=== PATIENT | male | born 1955 | race Hispanic/Latino ===

== ENCOUNTER → 2018-05-14 | Outpatient (CLI) | payer OTHER ==
[~2018-05-14] MED LIST: AMLO10TA7 PO; ELVI1TAB3 PO; FOLI-74 PO; LISI-613 PO; TAMS-1 PO
== END | disposition home or self-care (01) ==
LOC: RAH 09:00
PROVIDERS: ATTEND Obstetrics & Gynecology
DX: K76.0 Fatty (change of) liver, not elsewhere classified (principal)
CPT/HCPCS: 76700

== ENCOUNTER → 2020-04-08 | Outpatient (CLI) | payer OTHER ==
[~2020-04-08] MED LIST changes: +AMLO-258 PO; -AMLO10TA7 PO; -LISI-613 PO; +LISI20TA24 PO
== END | disposition home or self-care (01) ==
LOC: RAH 08:02
PROVIDERS: ATTEND Internal Medicine Gastroenterology
DX: R94.5 Abnormal results of liver function studies (principal); K76.0 Fatty (change of) liver, not elsewhere classified; R79.89 Other specified abnormal findings of blood chemistry; K76.9 Liver disease, unspecified
CPT/HCPCS: 76700

== ENCOUNTER → 2020-05-13 | Outpatient (CLI) | payer OTHER ==
[~2020-05-13] MED LIST changes: +IOHEXOL-350 75 ML VIAL IV ONE
== END | disposition home or self-care (01) ==
LOC: RAH 08:11
PROVIDERS: ATTEND Internal Medicine Gastroenterology
DX: D18.03 Hemangioma of intra-abdominal structures (principal); K76.0 Fatty (change of) liver, not elsewhere classified; R93.2 Abnormal findings on diagnostic imaging of liver and biliary tract; K76.9 Liver disease, unspecified; K20.90 Esophagitis, unspecified without bleeding
CPT/HCPCS: 74170; Q9967

== ENCOUNTER → 2022-05-04 | Outpatient (CLI) | payer OTHER ==
[~2022-05-04] MED LIST changes: -IOHEXOL-350 75 ML VIAL IV ONE
== END | disposition home or self-care (01) ==
LOC: RAH 07:42
PROVIDERS: ATTEND Internal Medicine Gastroenterology
DX: K76.0 Fatty (change of) liver, not elsewhere classified (principal); D18.09 Hemangioma of other sites; R93.2 Abnormal findings on diagnostic imaging of liver and biliary tract; K76.9 Liver disease, unspecified
CPT/HCPCS: 76700; 93975

== ENCOUNTER → 2022-09-12 | Outpatient (CLI) | payer OTHER ==
[~2022-09-12] MED LIST changes: +IOHEXOL-350 75 ML VIAL IV ONE
== END | disposition home or self-care (01) ==
LOC: RAH 07:15
PROVIDERS: ATTEND Internal Medicine Gastroenterology
DX: K76.89 Other specified diseases of liver (principal); R77.2 Abnormality of alphafetoprotein; K76.9 Liver disease, unspecified; R93.2 Abnormal findings on diagnostic imaging of liver and biliary tract
CPT/HCPCS: 74170; Q9967

== ENCOUNTER → 2024-06-06 | Outpatient (CLI) | payer OTHER ==
[~2024-06-06] MED LIST changes: -IOHEXOL-350 75 ML VIAL IV ONE
--- NOTE | 2024-06-06 14:36 | HMCIMG ---
THORACIC SPINE 2VWS HISTORY: Pain COMPARISON: None FINDINGS: 3 images of thoracic spine were obtained. There is spondylosis with degenerative changes. There is straightening of normal lordotic curvature which may be related to muscle spasm or positioning. No loss of vertebral height is seen. No fracture or dislocation is seen. Degenerative changes are seen. IMPRESSION: 1. No fracture is seen. DJD.
--- NOTE | 2024-06-06 14:36 | HMCIMG ---
LUMBAR SPINE 2-3VWS HISTORY: Pain COMPARISON: None FINDINGS: 3 images of lumbar spine were obtained. Anterior osteophytes are seen. There are degenerative changes with lumbar spine spondylosis. There is straightening of normal lordotic curvature which may be related to muscle spasm or positioning. No loss of vertebral height is seen. No fracture or dislocation is seen. Degenerative changes are seen. IMPRESSION: 1. No fracture is seen. DJD.
--- NOTE | 2024-06-06 14:39 | HMCIMG ---
CERV SPINE 2-3VWS HISTORY: Pain COMPARISON: None FINDINGS: 4 images of cervical spine were obtained. Anterior osteophytes are seen. There are degenerative changes with spondylosis. There is straightening of normal lordotic curvature which may be related to muscle spasm or positioning. No loss of vertebral height is seen. No fracture or dislocation is seen. Degenerative changes are seen. IMPRESSION: 1. No fracture is seen. DJD.
== END | disposition home or self-care (01) ==
LOC: RAH 06-05 11:24
PROVIDERS: ATTEND Internal Medicine
DX: M47.812 Spondylosis without myelopathy or radiculopathy, cervical region (principal); M47.814 Spondylosis without myelopathy or radiculopathy, thoracic region; M47.816 Spondylosis without myelopathy or radiculopathy, lumbar region; M25.78 Osteophyte, vertebrae; M54.9 Dorsalgia, unspecified
CPT/HCPCS: 72040; 72070; 72100